=== PATIENT | female | born 1960 | race Hispanic/Latino ===

== ENCOUNTER → 2023-06-21 | Outpatient (CLI) | payer OTHER | END | disposition home or self-care (01) | LOC: RAH 13:26 | PROVIDERS: ATTEND Family Medicine | DX: S39.012D Strain of muscle, fascia and tendon of lower back, subsequent encounter (principal); S70.01XD Contusion of right hip, subsequent encounter; S33.5XXD Sprain of ligaments of lumbar spine, subsequent encounter; S16.1XXD Strain of muscle, fascia and tendon at neck level, subsequent encounter; M16.0 Bilateral primary osteoarthritis of hip; M47.812 Spondylosis without myelopathy or radiculopathy, cervical region; M50.222 Other cervical disc displacement at C5-C6 level; M48.02 Spinal stenosis, cervical region; X58.XXXD Exposure to other specified factors, subsequent encounter | CPT/HCPCS: 72141; 72148; 73721 ==

== ENCOUNTER → 2024-07-02 | Outpatient (CLI) | payer BC ==
--- NOTE | 2024-07-02 17:00 | HMCIMG ---
CT CHEST W/O CONTRAST HISTORY: History of smoking COMPARISON: None TECHNIQUE: Multiple sequential axial images of the chest were obtained from the thoracic inlet through upper abdomen. Patient was not given contrast through intravenous route. FINDINGS: There is no evidence of pulmonary nodule or parenchymal disease. There are mild interstitial fibrosis. No pleural effusion or pericardial effusion is seen. There is no evidence of pneumothorax. There are normal size mediastinal and hilar lymph nodes. The heart is not enlarged. Degenerative changes of the thoracolumbar spine are present. There is no evidence of adrenal nodule. IMPRESSION: 1. No evidence of pulmonary nodule or effusion is seen. Disposition fibrosis. CT was performed with one or more following dose reduction techniques: automated exposure control, adjustment of the mA and kv according to patient's size, or use of a iterative reconstruction technique.
== END | disposition home or self-care (01) ==
LOC: RAH 13:18
PROVIDERS: ATTEND Internal Medicine
DX: J84.10 Pulmonary fibrosis, unspecified (principal); R91.8 Other nonspecific abnormal finding of lung field; M47.815 Spondylosis without myelopathy or radiculopathy, thoracolumbar region; Z87.891 Personal history of nicotine dependence
CPT/HCPCS: 71250

== ENCOUNTER 2024-11-20 15:50 | Emergency (ER) | payer BC ==
[~2024-11-20] VITALS: Ht 162.6 cm; Wt 75.7 kg
[2024-11-20 17:00] LABS: IMMATURE GRANULOCYTE ABSOLUTE 0.03 K/uL (0-1); NUCLEATED RED BLOOD CELLS 0.0 % (0.0-0.19); PLATELET COUNT (AUTO) 178 K/uL (130-400); RED BLOOD CELL COUNT(AUTO) 4.81 MIL/uL (4.00-5.50); RED CELL DISTRIBUTION WIDTH 13.8 % (11.0-15.5); WHITE BLOOD COUNT (AUTO) 8.8 K/uL (4.8-10.8)
[2024-11-20 17:13] LABS: CREATININE 0.8 mg/dL (0.5-1.0); GLOMERULAR FILTR. RATE CALC 83.0 mL/min (>90); GLUCOSE,RANDOM 87.0 mg/dL (70-105); SODIUM SERUM 135.0 mmol/L (136-145); UREA NITROGEN, BLOOD 15.0 mg/dL (7-18)
[2024-11-20 17:17] VITALS: TEMP 97.1
[2024-11-20 17:18] LABS: ASPARTATE AMINOTRANSFERASE 22.0 U/L (10-37); TOTAL PROTEIN, SERUM 7.7 g/dL (6.0-8.3)
--- NOTE | 2024-11-20 17:23 | HMCIMG ---
EXAM: CT Head Without IV contrast. CLINICAL HISTORY: vertigo w/n/v TECHNIQUE: Axial computed tomography images of the head/brain without intravenous contrast. COMPARISON: None provided. FINDINGS: BRAIN: No evidence of acute hemorrhage. No mass lesion. No CT evidence for acute territorial infarct. No midline shift or extra-axial collections. VENTRICLES: No hydrocephalus. ORBITS: The orbits are unremarkable. SINUSES AND MASTOIDS: The paranasal sinuses and mastoid air cells are clear. BONES: No fracture. SOFT TISSUES: Unremarkable. IMPRESSION: No acute intracranial abnormality. /[place]
--- NOTE | 2024-11-20 18:05 | EKG ---
[facility] Test Date: 2024-11-20 Test Time: 18:00:15 Pat Name: WILIAN CABRAL Department: ED Room: Gender: F Priest: [id number] : 1960 Requested By: SELMA SALDIVAR Order Number: [id number] Reading MD: Kenny Lewis Measurements Intervals [place] Rate: 55 P: 68 NH: 162 QRS: -1 QRSD: 83 T: 17 QT: 441 QTc: 423 Interpretive Statements Sinus rhythm Probable left atrial enlargement Low voltage, precordial leads No previous ECG available for comparison Electronically Signed On 11-23-2024 21:31:36 CDT by Kenny Lewis Please click the below link to view image of tracing.
[2024-11-20] MEDS: 0.9%NACL 1000ML 1,000 ML IV SCH (18:17)
[2024-11-20] MEDS ORDERED: MECL-302 PO (18:17)
--- NOTE | 2024-11-20 18:17 | ERN ---
General Chief Complaint: Dizzy/Light Headed Stated Complaint: VERTIGO/ NAUSEA Time Seen by MD: 15:58 Time Seen by Midlevel: 15:58 Source: patient History of Present Illness Initial Comments 64-year-old female presenting to the emergency department for evaluation of nausea with vertigo for the past three days. Allergies: Coded Allergies: acetaminophen (Unverified Allergy, Unknown, 11/20/24) hydrocodone (Unverified Allergy, Unknown, 11/20/24) nitrofurantoin (Unverified Allergy, Unknown, 11/20/24) Home Meds Active Scripts Meclizine HCl (Meclizine HCl) 25 Mg Tablet, 25 MG PO TID for vertigo, #30 TAB 0 Refills Prov:SELMA SALDIVAR 11/20/24 Past Medical History Past Medical History: Other Medical History Other: ALLERGIES/ HORMONAL MEDICATION Past Surgical History: Cholecystectomy, ROS Dictation CONSTITUTIONAL: Negative except for HPI HEAD/FACE: Negative except for HPI EENT: Negative except for HPI RESPIRATORY: Negative except for HPI GASTROINTESTINAL/ABDOMINAL: Negative except for HPI GENITOURINARY: Negative except for HPI MUSCULOSKELETAL: Negative except for HPI INTEGUMENTARY: Negative except for HPI NEUROLOGICAL/PSYCH: Negative except for HPI HEMATOLOGIC/LYMPHATIC: Negative except for HPI All Systems Negative, Except as noted above. 13 point review of systems assessed and all negative except for above. Physical Exam Physical Exam Dictation Vital Signs reviewed General Appearance: Alert, oriented x 3, no acute distress, well developed, nourished. Head and Face: non-traumatic. Eyes: PERRL, pink conjunctivas, eyelid no trauma, anterior chamber with arcus senilis. Ears: Pinnas intact and no signs of trauma or erythema ear canals clear and no discharge TM no erythema Nose: No discharge, no bleeding. Oropharynx: Mouth normal, tongue pink, pharynx clear,no erythema, tonsils no exudates, no abscesses noted, mucous membrane moist Neck: Supple, non-tender, no thyromegaly, no masses, no JVD, no bruits Breast:Deferred Chest:No tenderness, no crepitus, no paradoxical movement, no retractions Lungs:Clear, well-ventilated, symmetric, no rales, no wheezing, no rhonchi, no stridor, good breath sounds bilaterally Heart: Regular rate, regular rhythm, no murmur, no gallops Vascular: no peripheral edema, Abdomen: Soft, positive bowel sounds, nondistended, no guarding, nontender, no rebound, no masses no hepatomegaly, no splenomegaly, no Ragsdale's sign, no hernias. Rectal: Deferred Genital: Deferred Neurological: Normal speech, motor function intact, sensory function intact Musculoskeletal: Neck nontender, full range of motion, back nontender, full range of motion, Extremities: nontender, full range of motion Skin: Color pink, dry, no turgor, no rash, no lacerations, no abrasions, no contusions. Lymphatic: Deferred Results Laboratory and Microbiology Lab and Micro Result Laboratory Tests Test 11/20/24 16:52 White Blood Count 8.8 K/uL (4.8-10.8) Red Blood Count 4.81 MIL/uL (4.00-5.50) Hemoglobin 14.0 g/dL (12.0-16.0) Hematocrit 43.2 % (36-48) Mean Corpuscular Volume 89.8 fL (79-99) Mean Corpuscular Hemoglobin 29.1 pg (27.0-33.0) Mean Corpuscular Hemoglobin Concent 32.4 g/dL (32.0-36.0) Red Cell Distribution Width 13.8 % (11.0-15.5) Platelet Count 178 K/uL (130-400) Mean Platelet Volume 10.5 fL (7.5-10.5) Immature Granulocyte % (Auto) 0.3 % (0-1) Neutrophils (%) (Auto) 65.4 % (40.0-77.0) Lymphocytes (%) (Auto) 25.1 % (21.0-51.0) Monocytes (%) (Auto) 7.5 % (3.0-13.0) Eosinophils (%) (Auto) 1.1 % (0.0-8.0) Basophils (%) (Auto) 0.6 % (0.0-5.0) Neutrophils # (Auto) 5.8 K/uL (1.8-7.7) Lymphocytes # (Auto) 2.2 K/uL (1.0-4.8) Monocytes # (Auto) 0.7 K/uL (0.1-1.0) Eosinophils # (Auto) 0.10 K/uL (0.00-0.70) Basophils # (Auto) 0.05 K/uL (0.00-0.20) Absolute Immature Granulocyte (auto 0.03 K/uL (0-1) Nucleated Red Blood Cells 0.0 % (0.0-0.19) Sodium Level 135 mmol/L (136-145) L Potassium Level 3.6 mmol/L (3.5-5.1) Chloride Level 98 mmol/L (101-111) L Carbon Dioxide Level 29 mmol/L (21-32) Blood Urea Nitrogen 15 mg/dL (7-18) Creatinine 0.8 mg/dL (0.5-1.0) Glomerular Filtration Rate Calc 83 mL/min (>90) Random Glucose 87 mg/dL (70-105) Total Calcium 8.9 mg/dL (8.5-10.1) Total Bilirubin 0.3 mg/dL (0.2-1.0) Aspartate Amino Transf (AST/SGOT) 22 U/L (10-37) Alanine Aminotransferase (ALT/SGPT) 33 U/L (12-78) Alkaline Phosphatase 79 U/L (50-136) Troponin I High Sensitivity 5 ng/L (4-50) Total Protein 7.7 g/dL (6.0-8.3) Albumin 3.6 g/dL (3.5-5.0) Lipase 54 U/L (16-77) Labs Reviewed?: Yes MDM MDM: Differential diagnosis: vertigo, intracranial bleed, There are no social concerns with this patient. Prescription drug management Prescriptions will include: Meclizine Medical management and examination interpretation discussions were had by me with other qualified healthcare professionals as indicated for the patient's care. ED Course Orders Procedure Category Date Status Time Cbc With Differential LAB 11/20/24 Complete 16:30 Comprehensive LAB 11/20/24 Complete Metabolic Panel 16:30 Lipase LAB 11/20/24 Complete 16:30 Ct Head/Brain W/O CT 11/20/24 Resulted Contrast 16:30 Troponin I High LAB 11/20/24 Complete Sensitivity 16:30 0.9%Nacl 1000ml (Ns PHA 11/20/24 Complete 1000ml) 18:00 12 Lead Ekg Tracing- EKG 11/20/24 Complete Technical 17:53 Meclizine Hcl 25 Mg PHA 11/20/24 Complete (Antivert 25 Mg) 18:00 Ondansetron 4mg Inj PHA 11/20/24 Complete (Zofran 4mg Inj) 19:00 Current Medications Medications (Trade) Dose Ordered Sig/[place] Route PRN Reason Start Time Stop Time Status Last Admin Dose Admin Meclizine HCl (ANTIvert 25 mg) 25 mg ONCE PO 11/20/24 18:00 11/20/24 20:13 DC 11/20/24 18:17 Ondansetron HCl (zoFRAN 4MG INJ) 4 mg ONCE IVP 11/20/24 19:00 11/20/24 20:13 DC 11/20/24 18:51 Sodium Chloride 1,000 ml @ 0 mls/hr ONCE IV 11/20/24 18:00 11/20/24 20:13 DC 11/20/24 18:17 Vital Signs Date Time Temp Pulse Resp B/P (MAP) Pulse Ox O2 Delivery O2 Flow Rate FiO2 11/20/24 19:26 59 18 162/67 99 Room Air* 0 21 11/20/24 17:17 97.2 60 16 150/67 99 Room Air* 0 21 11/20/24 15:55 97.2 60 18 160/65 98 Room Air 0 DX & DISP Disposition: Discharge Departure Impression: Primary Impression: Vertigo Condition: Stable Scripts Meclizine HCl (Meclizine HCl) 25 Mg Tablet 25 MG PO TID for vertigo, #30 TAB 0 Refills Prov: SELMA SALDIVAR 11/20/24 Referrals: MYKEL PECK MD (PCP) Time of Disposition: 18:16 I have reviewed the case, and I agree with, Diagnosis and Plan I performed the substantive portion of the visit. I have reviewed and perso nicholas made and approve the management plan that is documented in the note by myself or the LICHA. I acknowledge for responsibility for the patient's management plan. SELMA SALDIVAR Nov 20, 2024 18:17
[2024-11-20 19:26] VITALS: BP 162/67; PULSE 59; RESP 18; O2SAT 99
== END 2024-11-20 20:13 | disposition home or self-care (01) ==
LOC: EDH 15:50
DX: R42 Dizziness and giddiness (principal); R11.0 Nausea; Z88.1 Allergy status to other antibiotic agents; Z88.5 Allergy status to narcotic agent; Z90.49 Acquired absence of other specified parts of digestive tract
CPT/HCPCS: 99284; 96374; 70450; 96361; 84484; 80053; 83690; 85025; 36415; 93005; J7030; J2405